=== PATIENT | male | born 1955 | race Caucasian/White ===

== ENCOUNTER 2019-06-10 09:13 | Outpatient (CLI) | payer OTHER, SELFPAY ==
--- NOTE | ~2019-06-10 | XR_ITS ---
XR chest 2V DATE: 06/10/2019 09:43 INDICATION: Cough, wheezing TECHNIQUE: PA and lateral views COMPARISON: 07/09/2011 two-view chest FINDINGS: Diffuse idiopathic skeletal hyperostosis of the thoracic spine. Normal heart size. No hilar or mediastinal enlargement. No pulmonary infiltrate or consolidation, ple ural effusion or pulmonary vascular congestion or pneumothorax. IMPRESSION: No active cardiopulmonary disease or significant change since 07/09/2011 Reviewed, dictated and finalized at location B. L MAKER IMPRESSION: No active cardiopulmonary disease or significant change since 012
== END 2019-06-10 09:14 | disposition home or self-care (01) ==
PROVIDERS: PCP Internal Medicine; Visit Provider Internal Medicine
DX: R05 Cough (principal); R06.2 Wheezing
CPT/HCPCS: 71046

== ENCOUNTER 2021-12-17 11:10 | Outpatient (CLI) | payer MEDICARE, OTHER, SELFPAY ==
--- NOTE | ~2021-12-17 | XR_ITS ---
EXAMINATION: XR chest 2V 12/17/2021 11:56 INDICATION: Preop clearance testing. PROCEDURE: 2 view chest COMPARISON: 06/10/2019 FINDINGS: The lungs are clear. The cardiomediastinal silhouette is within normal limits. There are no pleural effusions. There is no pneumothorax suspected. IMPRESSION: 1: NO ACUTE CARDIOPULMONARY DISEASE. Reviewed, dictated and finalized at location B.
[2021-12-17 11:30] LABS: Basophils Absolute Auto 0.03 K/mm3 (0.00-0.10); Basophils Percent Auto 0.4 % (0.0-1.0); Eosinophils Absolute Auto 0.08 K/mm3 (0.02-0.50); Eosinophils Percent Auto 1.1 % (1.0-6.0); Hematocrit 44.8 % (37.0-46.0); Hemoglobin 15.5 g/dL (12.4-15.3); Immature Granulocyte Absolute 0.05 K/mm3 (0.00-0.00); Immature Granulocyte Percent A 0.7 % (0.0-0.0); Lymphocytes Absolute Auto 1.99 K/mm3 (1.10-4.50); Lymphocytes Percent Auto 28.3 % (18.0-42.0); Mean Corpuscular HGB Conc 34.6 g/dL (32.0-36.0); Mean Corpuscular Hemoglobin 35.4 pg (27.0-31.0); Mean Corpuscular Volume 102.3 fL (78.0-102.0); Mean Platelet Volume 10.1 fl (8.7-11.0); Monocytes Absolute Auto 0.58 K/mm3 (0.10-0.90); Monocytes Percent Auto 8.3 % (2.0-11.0); Neutrophils Absolute Auto 4.3 K/mm3 (1.7-7.2); Neutrophils Percent Auto 61.2 % (50.0-70.0); Platelet Count Result 155 K/mm3 (150-420); Red Blood Count 4.38 M/mm3 (4.70-6.10); Red Cell Distribution Width 12.6 % (11.6-14.4)
--- NOTE | 2021-12-17 11:35 | ECG_ITS ---
Measurements Intervals [place] Rate: 58 P: 9 NH: 133 QRS: 33 QRSD: 106 T: 43 QT: 419 QTc: 413 Interpretive Statements SINUS BRADYCARDIA WITH OCCASIONAL SUPRAVENTRICULAR PREMATURE COMPLEXES OTHERWISE WITHIN NORMAL LIMITS NO PREVIOUS ECG AVAILABLE FOR COMPARISON Electronically Signed On 12-17-2021 14:14:09 CDT by iNr Mcarthur M.D.
[2021-12-17 11:45] LABS: Alanine Aminotransferase 30 U/L (16-63); Alkaline Phosphatase 63 U/L (46-116); Anion Gap 4 mmol/L (8-16); Aspartate Amino Transferase 17 U/L (15-37); Bilirubin,Total 1.3 mg/dL (0.00-1.00); Blood Urea Nitrogen 8 mg/dL (7-18); Calcium 8.7 mg/dL (8.5-10.1); Carbon Dioxide 32 mmol/L (21-32); Chloride 103 mmol/L (98-108); Estimated Glomerular Filt Rate > 60; Glucose 120 mg/dL (70-99); Osmolality Calculated 287 mOsm/kg (285-295); Potassium 4.1 mmol/L (3.5-5.1); Sodium 139 mmol/L (136-145); Total Protein 7.1 g/dL (6.4-8.2)
== END 2021-12-17 11:11 | disposition home or self-care (01) ==
LOC: CHSLAB 11:18
PROVIDERS: PCP Internal Medicine; Visit Provider Internal Medicine
DX: Z01.818 Encounter for other preprocedural examination (principal)
CPT/HCPCS: 36415; 71046; 80053; 85025; 93005

== ENCOUNTER 2022-01-14 11:59 | Outpatient (CLI) | payer MEDICARE, OTHER, SELFPAY ==
--- NOTE | ~2022-01-14 | XR_ITS ---
EXAMINATION: XR chest 2V Exam Date/Time: 01/14/2022 12:10 CDT HISTORY: testing positive for COVID x2wks, still has fever cough Comparison: Same day at :mm 12/17/2021. RESULT: Lines, tubes, and devices: None. Lungs and pleura: Clear. Cardiomediastinal silhouette: Stable. Other: No acute osseous or upper abdominal finding. IMPRESSION: No acute cardiopulmonary process. Reviewed, dictated and finalized at location K.
[2022-01-14 12:27] LABS: Basophils Absolute Auto 0.02 K/mm3 (0.00-0.10); Basophils Percent Auto 0.4 % (0.0-1.0); Eosinophils Percent Auto 1.8 % (1.0-6.0); Hematocrit 46.4 % (37.0-46.0); Hemoglobin 16.3 g/dL (12.4-15.3); Immature Granulocyte Absolute 0.05 K/mm3 (0.00-0.00); Immature Granulocyte Percent A 0.9 % (0.0-0.0); Lymphocytes Percent Auto 27.5 % (18.0-42.0); Mean Corpuscular HGB Conc 35.1 g/dL (32.0-36.0); Mean Corpuscular Hemoglobin 35.4 pg (27.0-31.0); Mean Corpuscular Volume 100.7 fL (78.0-102.0); Monocytes Absolute Auto 0.56 K/mm3 (0.10-0.90); Monocytes Percent Auto 10.3 % (2.0-11.0); Neutrophils Absolute Auto 3.2 K/mm3 (1.7-7.2); Neutrophils Percent Auto 59.1 % (50.0-70.0); Platelet Count Result 208 K/mm3 (150-420); Red Blood Count 4.61 M/mm3 (4.70-6.10); Red Cell Distribution Width 11.9 % (11.6-14.4); White Blood Count 5.5 K/mm3 (4.8-10.8)
[2022-01-14 12:44] LABS: Alanine Aminotransferase 24 U/L (16-63); Albumin Level 3.8 g/dL (3.4-5.0); Alkaline Phosphatase 66 U/L (46-116); Anion Gap 7 mmol/L (8-16); Aspartate Amino Transferase 13 U/L (15-37); Bilirubin,Total 0.8 mg/dL (0.00-1.00); Blood Urea Nitrogen 7 mg/dL (7-18); Calcium 8.6 mg/dL (8.5-10.1); Carbon Dioxide 28 mmol/L (21-32); Chloride 105 mmol/L (98-108); Estimated Glomerular Filt Rate > 60; Glucose 229 mg/dL (70-99); Osmolality Calculated 295 mOsm/kg (285-295); Potassium 3.7 mmol/L (3.5-5.1); Sodium 140 mmol/L (136-145); Total Protein 7.3 g/dL (6.4-8.2)
[2022-01-14 12:50] LABS: Influenza Control Valid (Valid); SARS-CoV-2 Ag Positive (Negative)
[2022-01-14 17:21] LABS: Hemoglobin A1C 6.1 % (<5.7)
== END 2022-01-14 12:00 | disposition home or self-care (01) ==
LOC: CHSLAB 12:02
PROVIDERS: PCP Internal Medicine; Visit Provider Nurse Practitioner Family
DX: U07.1 COVID-19 (principal); J06.9 Acute upper respiratory infection, unspecified; R05.9 Cough, unspecified; R73.9 Hyperglycemia, unspecified
CPT/HCPCS: 71046; 80053; 83036; 85025; 87426; 87804; C9803

== ENCOUNTER 2024-04-23 07:49 | Outpatient (CLI) | payer MEDICARE, SELFPAY ==
[2024-04-23 08:17] LABS: Hemoglobin 16.9 g/dL (12.4-15.3); Mean Corpuscular HGB Conc 35.2 g/dL (32-36); Mean Corpuscular Hemoglobin 34.7 pg (27.0-31.0); Mean Corpuscular Volume 98.6 fL (78.0-102.0); Mean Platelet Volume 10.1 fl (8.7-11.0); Platelet Count Result 170 K/mm3 (150-420); Red Blood Count 4.87 M/mm3 (4.70-6.10); Red Cell Distribution Width 12.5 % (11.6-14.4); White Blood Count 6.7 K/mm3 (4.8-10.8)
[2024-04-23 08:26] LABS: Hemoglobin A1C 6.6 % (<5.7)
[2024-04-23 08:49] LABS: Alanine Aminotransferase 36 U/L (16-63); Alkaline Phosphatase 70 U/L (46-116); Anion Gap 6 mmol/L (4-12); Aspartate Amino Transferase 18 U/L (15-37); Bilirubin,Total 1.8 mg/dL (0.00-1.00); Blood Urea Nitrogen 10 mg/dL (7-18); Calcium 9.1 mg/dL (8.5-10.1); Carbon Dioxide 32 mmol/L (21-32); Chloride 102 mmol/L (98-108); Cholesterol 127 mg/dL (0-200); Estimated Glomerular Filt Rate > 60; Glucose 135 mg/dL (70-99); HDL Direct 48 mg/dL (40-60); LDL Cholesterol Calculated 42 mg/dL (<130); Osmolality Calculated 291 mOsm/kg (285-295); Potassium 4.6 mmol/L (3.5-5.1); Sodium 140 mmol/L (136-145); Total Protein 7.1 g/dL (6.4-8.2); Triglycerides 184 mg/dL (0-150)
[2024-04-23 08:53] LABS: CRP < 0.5 mg/dL (0.0-0.9)
== END 2024-04-23 07:50 | disposition home or self-care (01) ==
PROVIDERS: PCP Internal Medicine; Visit Provider Internal Medicine
DX: E78.5 Hyperlipidemia, unspecified (principal); E11.9 Type 2 diabetes mellitus without complications
CPT/HCPCS: 36415; 80053; 80061; 83036; 84443; 85027; 86140

== ENCOUNTER 2024-08-12 09:50 | Outpatient (CLI) | payer MEDICARE, SELFPAY ==
--- NOTE | ~2024-08-12 | XR_ITS ---
Clinical Indication: Asthma PA and lateral views of the chest: Comparison: 01/14/2022 Findings: The lungs are clear, without evidence of focal consolidation or pleural effusion. Cardiome diastinal silhouette is within normal limits. Bones and soft tissues are unremarkable. Impression: Normal chest. Reviewed, dictated and finalized at location . Impression: Normal chest.
[2024-08-12 10:22] LABS: Basophils Absolute Auto 0.01 K/mm3 (0.00-0.10); Basophils Percent Auto 0.2 % (0.0-1.0); Eosinophils Absolute Auto 0.06 K/mm3 (0.02-0.50); Hematocrit 45.8 % (37.0-46.0); Hemoglobin 15.5 g/dL (12.4-15.3); Immature Granulocyte Absolute 0.04 K/mm3 (0.00-0.00); Immature Granulocyte Percent A 0.7 % (0.0-0.0); Lymphocytes Absolute Auto 1.14 K/mm3 (1.10-4.50); Lymphocytes Percent Auto 19.4 % (18.0-42.0); Mean Corpuscular HGB Conc 33.8 g/dL (32-36); Mean Corpuscular Hemoglobin 33.9 pg (27.0-31.0); Mean Corpuscular Volume 100.2 fL (78.0-102.0); Mean Platelet Volume 9.9 fl (8.7-11.0); Monocytes Absolute Auto 0.52 K/mm3 (0.10-0.90); Monocytes Percent Auto 8.8 % (2.0-11.0); Neutrophils Absolute Auto 4.12 K/mm3 (1.70-7.20); Neutrophils Percent Auto 69.9 % (50.0-70.0); Platelet Count Result 138 K/mm3 (150-420); Red Blood Count 4.57 M/mm3 (4.70-6.10); Red Cell Distribution Width 12.2 % (11.6-14.4); White Blood Count 5.9 K/mm3 (4.8-10.8)
--- OUTSIDE RECORDS SUMMARY | 2024-08-12 10:28 | XMS_ITS | Clinical Summary ---
Author Organization [facility] Address [address] [place] [address] Care Team Providers Care Physical Therapy Asst Name Role Phone Ricardo Castanon MD Primary Care Provider Allergies No known active allergies Medications atorvastatin (LIPITOR) 10 MG tablet Take 1 tablet (10 mg total) by mouth daily. 4 Active methotrexate (TREXALL) 2.5 MG tablet Take 8 tablets (20 mg total) by mouth once a week. 4 Active traMADol (ULTRAM) 50 MG tablet Take 1 tablet (50 mg total) by mouth 2 (two) times daily as needed. 4 Active Multiple Vitamin (ONE-A-DAY MENS) Tab Take 1 tablet by mouth daily. Active Vitamin D3 (VITAMIN D) 50 mcg tablet Take 1 tablet (50 mcg total) by mouth daily. Active vitamin E 100 UNIT capsule Take 1 capsule (100 Units total) by mouth daily. Active fluocinonide (LIDEX) 0.05 % external solution APPLY TO SCALP ONCE DAILY UNTIL NO LONGER FLAKY. 3 Active methylPREDNISol one, SERGIO, (MEDROL DOSEPAK) 4 MG tabletIndicatio ns:Strain of long flexor muscle, fascia and tendon of left thumb at wrist and hand level, subsequent encounter 4 mg Oral Tablet Therapy Pack. Follow package directions 1 each 4 Active Active Problems Problem Noted Date Diagnosed Date Strain of long flexor muscle , fascia and tendon of left thumb at wrist and hand level, subsequent encounter 04/15/2024 Trigger thumb of left hand 02/03/2024 Family History Medical History Relation Comments No Known Problems Father No Known Problems Mother Relation Status Comments Father Mother Social History Tobacco Use Types Packs/Day Years Used Date Smoking Tobacco: Never Smokeless Tobacco: Never Tobacco Cessation:Counseling Given: Not Answered Alcohol Use Standard Drinks/Week Comments Yes 0 (1 standard drink = 0.6 oz pur e alcohol) Sex and Gender Information Value Date Recorded Sex Assigned at Not on file Legal Sex Male 7:11 AM CDT Gender Identity Not on file Sexual Orientation Not on file Last Filed Vital Signs Vital Sign Reading Time Taken Comments Blood Pressure - - Pulse - - Temperature - - Respiratory Rate - - Oxygen Saturation - - Inhaled Oxygen Concentration - - Weight 95.3 kg (210 lb) 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 Height 175.3 cm (5' 9 ) 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 Body Mass Index 31.01 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 Plan of Treatment Health Maintenance Due Date Last Done Comments Colorectal Cancer Screening Colonoscopy (10 Years) 1955 Hepatitis C 1972 Annual Medicare Wellness Visit 11/11/2019 COVID-19 Vaccine ( season) 2024 01/28/2024, 01/28/2023, 03/05/2022, Additional history exists DTaP, Tdap and Td Vaccines (3 - Td or Tdap) 02/19/2032 02/18/2022, 09/24/2011 Zoster Vaccines Completed 04/14/2018, 12/25/2017 Pneumococcal Vaccine: 65+ Years Completed 04/21/2023, 12/23/2021, 03/18/2017, Additional history exists RSV Immunization or 60+ Years Completed 05/01/2023 Meningococcal B Vaccine Aged Out No l onger eligible based on patient's age to complete this topic Meningococcal Vaccine Aged Out No caitlin deann eligible based on patient's age to complete this topic RSV Immunizations Under 20 Months Aged Out No longer eligible based on patient's age to complete this topic Insurance MEDICARE [employer] Care Teams Physical Therapy Asst Relationship Specialty Start Date End Date Ricardo Castanon MD [address] [place] [address] PCP - General INTERNAL MEDICINE 02/03/24
--- OUTSIDE RECORDS SUMMARY | 2024-08-12 10:28 | XMS_ITS | Data Portability ---
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 Peck on 11/19/2021. - Right anterior deltoid, Superficial BCC, s/p ED&C by Dr. Peck on 11/19/2021. - Right posterior deltoid, Superficial BCC, superficial BCC, s/p excision by Plastic surgery om 12/20/[address] Argueta -Right upper back, Superficial BCC, superficial BCC, s/p excision by Plastic surgery om 12/20/[address] Argueta - Left posterior shoulder, Nodular BCC, s/p excision by Plastic surgery om 12/20/[address] Argueta - Midline upper back, Nodular BCC superficial BCC, s/p excision by Plastic surgery om 12/20/[address] Argueta -Left upper back, Nodular BCC, s/p excision by Plastic surgery on 12/20/2021.By Dr. Argueta - Left upper back superior edge of scar, Superficial BCC, s/p excision by Plastic surgery on 12/20/2021. By Dr. Argueta - Left Shoulder, nodular BCC, s/p ED&C by Dr. Peck on 01/18/2022. - Right Forearm, superficial BCC, s/p ED&C by Dr. Peck on 01/18/2022. - Left cheek, Nodular BCC, s/p Mohs by Dr. Sequeira on 03/26/2022. -Central chest , superficial and early nodular BCC, s/p ED&C by Dr. Peck on 04/23/2022. -s/p field treatment on scalp in 05/2022. - Significantly improved -Right lateral chest, superficial BCC, s/p ED&C on 04/15/2023 #Neoplasm of uncertain behavior of skin (D48.5) A. LOCATION: left upper back superior edge of scar, lateral edge - size, description: shiny pink papule, 0.7 x 0.8 cm -DDx: recurrent BCC SHAVE BIOPSY Description: Risks, benefits, and alternatives of procedure were discussed, and patient understands and agrees with treatment plan. Risks reviewed including bleeding, pain, infection, recurrence, pigmentary change, and scarring. The site was cleansed with an alcohol swab and anesthetized with Lidocaine 1% in epinephrine 1:100,000 with 0.1 parts 8.4% sodium bicarbonate. A flexible blade was used to biopsy the lesion. Specimen was submitted in labeled formalin-filled specimen jar for standard histopathologic diagnosis. Hemostasis was obtained with pressure and aluminum chloride/electrodesi ccation. There were no complications; minimal bleeding, less than 1 mL. Patient tolerated procedure well. White petrolatum and a pressure bandage applied. Post-biopsy care instructions were discussed. Results to be discussed with patient once available. Photo documentation was obtained with consent. Most likely we will do ED&C per patient preference. B. LOCATION: left lateral mid back - size, description: medium brown papule with very dark area at 3 o'clock, 0.4 x 0.4 cm Indication: To remove entire lesion due to suspicion for malignancy -DDx: Nevus with SK, less likely MIS SHAVE REMOVAL: Description: Risks, benefits, and alternatives of procedure were discussed, and patient understands and agrees with treatment plan. Risks reviewed including bleeding, pain, infection, recurrence, pigmentary change, and scarring. The site was cleansed with an alcohol swab and anesthetized with Lidocaine 1% in epinephrine 1:100,000 with 0.1 parts 8.4% sodium bicarbonate. A flexible blade was used to remove the lesion. Specimen was submitted in labeled formalin-filled specimen jar for standard histopathologic diagnosis. Hemostasis was obtained with pressure and aluminum chloride/electrodesi ccation. There were no complications; minimal bleeding, less than 1 mL. Patient tolerated procedure well. White petrolatum and a bandage applied. Post-biopsy care instructions were discussed.postoperat brennan photo documentation was obtained with consent. #Actinic Keratosis LOCATION: right antihelix (2), right neck (3), right cheek (2), right forehead (1), right suprabrow (1), left forehead (2), left congregation (2), left suprabrow (1), left cheek (5), left triangular fossa (1), left jaw line (3), right forearm (1) Total = 24 description: erythematous gritty papules with scale -Discussed diagnosis and pre-cancerous nature of these lesions. Given potential to progress into an SCC, recommend treatment. -Cryotherapy performed today. Verbal consent was obtained after discussing risks including irritation, blistering, persistent dyspigmentation and potential need for multiple treatments. AKs were treated with liquid nitrogen x 12-15 sec x 2. Patient tolerated this well; there were no complications. Post liquid nitrogen care instructions and expectations were provided and discussed. The patient s condition required a significant, separately identifiable E/M service above and beyond the other services/procedures provided by the same physician on the same day of the procedure or other service. The following diagnoses are categorized as CHRONIC ILLNESS WITH EXACERBATION, PROGRESSION OR SIDE EFFECTS #Seborrheic dermatitis LOCATION: Scalp (well controlled) oily thin scaly ill-defined plaques Discussed diagnosis and treatment. PRESCRIPTION: CONT ketoconazole 2% shampoo daily- leave in for 5 minutes before washing out. CONT fluocinonide 0.05% solution at night to scalp. Do not apply to face,axilla,groin due to risk of skin thinning unless deemed appropriate per MD. May use 1-2 week/month as needed when scalp gets redder and scaly. The risks of assisted use of topical steroids including thinning of the skin, striae formation, and hypopigmentation were discussed. I stressed that this medication should only be used as directed. Prescription drug management was performed including discussion with the patient and/or family member that may include dose, expectations of treatment including potential side effects, review of patient response and, when necessary or clinically appropriate, change in medication or dosage. The following diagnoses are categorized as chronic stable, that is, the problem is expected to last at least a year and is currently at treatment goal. #Clinically benign nevi LOCATION: back, right lower leg ,chest, interdigital space between the left 3- 4th toes (evenly pigmented/monitor), multiple well-demarcated evenly pigmented brown macules and thin papules - discussed nature of condition - We discussed the importance of sun protection precautions, including the use of broad spectrum sunscreen (SPF 30 or higher) such as Zinc oxide or titanium dioxide, lip balm with SPF, UPF clothing, wide brim hats, and avoiding sunlight during peak hours. I encouraged self-skin examination and patient understands to monitor for changes in the ABCDEs - symmetry, border, color, diameter or evolution including itching or bleeding. #We discussed the fact that the following (see below) are benign lesions requiring no treatment. We discussed the fact that removal would be considered a cosmetic procedure and would not be covered by insurance. The patient is not bothered by the lesions and does not wish to have them treated. The patient was advised that more such lesions may develop. We will observe. #Milia/solar comedones LOCATION: left nasal labial fold Small, yellow/white papules - benign nature of diagnosis discussed with patient as well as elective nature of treatment #Seborrheic keratosis LOCATION: back, left congregation (pigmented), left preauricular -Multiple brown brown stuck on papules with some scaling. ------ Chronic immunosuppression: Patient is taking Methotrexate. Will continue to closely monitor, recommend at least annual skin checks or sooner for any new or changing lesions. Discussed increased risk of skin cancer. Photoprotection advised including broad spectrum spf at least 30 such as Zinc oxide or titanium dioxide, hats, long sleeves. Skin cancer hand out provided and reviewed. #Scar, Hx of NMSC and encounter for follow up surveillance of skin cancer - see assessments section for all location(s) - no evidence of recurrence on full skin exam - counseled patient extensively re: importance of daily sunscreen as well as use of sun protective clothing and hats - return to clinic for full skin exam in 6 months --- Patient voiced understanding of education/counseling provided. -Follow up in 6 months - skin cancer hx left upper back superior edge of scar, lateral edge: recurrent nodular BCC; I recommend ED&C. left lateral midback: SK+nevus. daya Not available 11/14/2023 21:14:29 11/18/2023 11/18/2023 SIGNIFICANT DERMATOLOGIC HISTORY: - Left norwood, Superficial BCC, s/p ED&C by Dr. Peck on 11/19/2021. - Right anterior deltoid, Superficial BCC, s/p ED&C by Dr. Peck on 11/19/2021. - Right posterior deltoid, Superficial BCC, superficial BCC, s/p excision by Plastic surgery om 12/20/[address] Argueta -Right upper back, Superficial BCC, superficial BCC, s/p excision by Plastic surgery om 12/20/[address] Argueta - Left posterior shoulder, Nodular BCC, s/p excision by Plastic surgery om 12/20/[address] Argueta - Midline upper back, Nodular BCC superficial BCC, s/p excision by Plastic surgery om 12/20/[address] Argueta -Left upper back, Nodular BCC, s/p excision by Plastic surgery on 12/20/2021.By Dr. Argueta - Left upper back superior edge of scar, Superficial BCC, s/p excision by Plastic surgery on 12/20/2021. By Dr. Argueta - Left Shoulder, nodular BCC, s/p ED&C by Dr. Peck on 01/18/2022. - Right Forearm, superficial BCC, s/p ED&C by Dr. Peck on 01/18/2022. - Left cheek, Nodular BCC, s/p Mohs by Dr. Sequeira on 03/26/2022. -Central chest , superficial and early nodular BCC, s/p ED&C by Dr. Peck on 04/23/2022. -s/p field treatment on scalp in 05/2022. - Significantly improved -Right lateral chest, superficial BCC, s/p ED&C on 04/15/2023 -Right congregation, nodular BCC, s/p Mohs by Dr. Sequeira on 07/30/2023 - left upper back superior edge of scar, lateral edge, recurrent nodular BCC, s/p ED&C on 11/18/2023 PROCEDURE: Electrodesiccation and curettage (ED&C) Location: left upper back superior edge of scar, lateral edge Pre-op diagnosis: nodular BCC Post-op diagnosis: same Post-op size: 1.7 x 1.4 cm Indication: To treat residual carcinoma and prevent recurrence Prior to the procedure, I discussed the diagnoses, treatment options, potential complications and risks versus benefits. Risks include bleeding, infection, scar, recurrence, hyper/hypopigmentati on, nerve damage, numbness, reaction to anesthesia or other products used in the surgical setting, skin texture change, and soft tissue contour change. Name, site, date of , and procedures were confirmed. After written informed consent was obtained, the site was cleaned with alcohol and local anesthetic Lidocaine 1% in epinephrine 1:100,000 with 0.1 parts 8.4% sodium bicarbonate was infiltrated. The site was curetted to the depth of the deep dermis and cauterized with electrodesiccation. This was repeated for a total of 3 cycles. Hemostasis was maintained with electrodesiccation and pressure. White petrolatum and pressure dressings were placed. Wound care instructions were provided and discussed. Patient tolerated today's procedures well; there were no complications. Postsurgical care instructions were provided and discussed. I encouraged patient to call or return to this clinic sooner with any questions or concerns. Patient was discharged in good condition. Total Amount of lidocaine used: 1.0 mL lido with epi. Patient voiced understanding of education/counseling provided. -Follow up as scheduled on 04/23/2024 for tbse- skin cancer hx [email or web address] Not available 11/23/2023 16:30:26 04/16/2024 04/16/2024 SIGNIFICANT DERMATOLOGIC HISTORY: - Left norwood, Superficial BCC, s/p ED&C by Dr. Peck on 11/19/2021. - Right anterior deltoid, Superficial BCC, s/p ED&C by Dr. Peck on 11/19/2021. - Right posterior deltoid, Superficial BCC, superficial BCC, s/p excision by Plastic surgery om 12/20/[address] Argueta -Right upper back, Superficial BCC, superficial BCC, s/p excision by Plastic surgery om 12/20/[address] Argueta - Left posterior shoulder, Nodular BCC, s/p excision by Plastic surgery om 12/20/[address] Argueta - Midline upper back, Nodular BCC superficial BCC, s/p excision by Plastic surgery om 12/20/[address] Argueta -Left upper back, Nodular BCC, s/p excision by Plastic surgery on 12/20/2021.By Dr. Argueta - Left upper back superior edge of scar, Superficial BCC, s/p excision by Plastic surgery on 12/20/2021. By Dr. Argueta - Left Shoulder, nodular BCC, s/p ED&C by Dr. Peck on 01/18/2022. - Right Forearm, superficial BCC, s/p ED&C by Dr. Peck on 01/18/2022. - Left cheek, Nodular BCC, s/p Mohs by Dr. Sequeira on 03/26/2022. -Central chest , superficial and early nodular BCC, s/p ED&C by Dr. Peck on 04/23/2022. -s/p field treatment on scalp in 05/2022. - Significantly improved -Right lateral chest, superficial BCC, s/p ED&C on 04/15/2023 -Right congregation, nodular BCC, s/p Mohs by Dr. Sequeira on 07/30/2023 - left upper back superior edge of scar, lateral edge, recurrent nodular BCC, s/p ED&C on 11/18/2023 -central chest superior, nodular BCC s/p ED&C 04/16/2024 #Neoplasm of uncertain behavior of skin (D48.5) A. LOCATION: central chest superior - size, description: 0.8 x 0.5cm shiny pink papule -DDx: BCC SHAVE BIOPSY Description: Risks, benefits, and alternatives of procedure were discussed, and patient understands and agrees with treatment plan. Risks reviewed including bleeding, pain, infection, recurrence, pigmentary change, and scarring. The site was cleansed with an alcohol swab and anesthetized with Lidocaine 1% in epinephrine 1:100,000 with 0.1 parts 8.4% sodium bicarbonate. A flexible blade was used to biopsy the lesion. Specimen was submitted in labeled formalin-filled specimen jar for standard histopathologic diagnosis. Hemostasis was obtained with pressure and aluminum chloride/electrodesi ccation. There were no complications; minimal bleeding, less than 1 mL. Patient tolerated procedure well. White petrolatum and a pressure bandage applied. Post-biopsy care instructions were discussed. Results to be discussed with patient once available. Photo documentation was obtained with consent. PROCEDURE: Electrodesiccation and curettage (ED&C) Location: central chest superior Pre-op diagnosis: BCC Post-op diagnosis: same Pre-op size: 0.8 x 0.5 cm Post-op size: 1.1 x 1.1 cm Indication: To treat residual carcinoma and prevent recurrence Prior to the procedure, I discussed the diagnoses, treatment options, potential complications and risks versus benefits. Risks include bleeding, infection, scar, recurrence, hyper/hypopigmentati on, nerve damage, numbness, reaction to anesthesia or other products used in the surgical setting, skin texture change, and soft tissue contour change. Name, site, date of , and procedures were confirmed. After written informed consent was obtained, the site was cleaned with alcohol and local anesthetic Lidocaine 1% in epinephrine 1:100,000 with 0.1 parts 8.4% sodium bicarbonate was infiltrated. The site was curetted to the depth of the deep dermis and cauterized with electrodesiccation. This was repeated for a total of 3 cycles. Hemostasis was maintained with electrodesiccation and pressure. White petrolatum and pressure dressings were placed. Wound care instructions were provided and discussed. Patient tolerated today's procedures well; there were no complications. Postsurgical care instructions were provided and discussed. I encouraged patient to call or return to this clinic sooner with any questions or concerns. Patient was discharged in good condition. Total Amount of lidocaine used: 2.5mL Patient confirms that the site(s) to be treated is/ are the correct site(s). #Actinic Keratosis LOCATION: scalp (4), right shoulder (1), right forearm (1) Total = 6 description: erythematous gritty papules with scale -Discussed diagnosis and pre-cancerous nature of these lesions. Given potential to progress into an SCC, recommend treatment. -Cryotherapy performed today. Verbal consent was obtained after discussing risks including irritation, blistering, persistent dyspigmentation and potential need for multiple treatments. AKs were treated with liquid nitrogen x 12-15 sec x 2. Patient tolerated this well; there were no complications. Post liquid nitrogen care instructions and expectations were provided and discussed. -Patient will plan to complete field treatment on forehead and sides of face. -FLUOROURACIL 5%/CALCIPOTRIENE 0.005%/ 1:1 CREAM - Apply twice daily to forehead and sides of face for 7 days. The patient s condition required a significant, separately identifiable E/M service above and beyond the other services/procedures provided by the same physician on the same day of the procedure or other service. The following diagnoses are categorized as CHRONIC ILLNESS WITH EXACERBATION, PROGRESSION OR SIDE EFFECTS #Seborrheic dermatitis LOCATION: Scalp (well controlled) oily thin scaly ill-defined plaques Discussed diagnosis and treatment. PRESCRIPTION: CONT ketoconazole 2% shampoo daily- leave in for 5 minutes before washing out. CONT fluocinonide 0.05% solution at night to scalp. Do not apply to face,axilla,groin due to risk of skin thinning unless deemed appropriate per MD. May use 1-2 week/month as needed when scalp gets redder and scaly. The risks of intermediate manager use of topical steroids including thinning of the skin, striae formation, and hypopigmentation were discussed. I stressed that this medication should only be used as directed. Prescription drug management was performed including discussion with the patient and/or family member that may include dose, expectations of treatment including potential side effects, review of patient response and, when necessary or clinically appropriate, change in medication or dosage. The following diagnoses are categorized as chronic stable, that is, the problem is expected to last at least a year and is currently at treatment goal. #Clinically benign nevi LOCATION: back, right lower leg ,chest, interdigital space between the left 3- 4th toes (evenly pigmented/monitor), multiple well-demarcated evenly pigmented brown macules and thin papules - discussed nature of condition - We discussed the importance of sun protection precautions, including the use of broad spectrum sunscreen (SPF 30 or higher) such as Zinc oxide or titanium dioxide, lip balm with SPF, UPF clothing, wide brim hats, and avoiding sunlight during peak hours. I encouraged self-skin examination and patient understands to monitor for changes in the ABCDEs - symmetry, border, color, diameter or evolution including itching or bleeding. #We discussed the fact that the following (see below) are benign lesions requiring no treatment. We discussed the fact that removal would be considered a cosmetic procedure and would not be covered by insurance. The patient is not bothered by the lesions and does not wish to have them treated. The patient was advised that more such lesions may develop. We will observe. #Milia/solar comedones LOCATION: left nasal labial fold Small, yellow/white papules - benign nature of diagnosis discussed with patient as well as elective nature of treatment #Seborrheic keratosis LOCATION: back, left congregation (pigmented), left preauricular -Multiple brown brown stuck on papules with some scaling. ------ Chronic immunosuppression: Patient is taking Methotrexate. Will continue to closely monitor, recommend at least annual skin checks or sooner for any new or changing lesions. Discussed increased risk of skin cancer. Photoprotection advised including broad spectrum spf at least 30 such as Zinc oxide or titanium dioxide, hats, long sleeves. Skin cancer hand out provided and reviewed. #Scar, Hx of NMSC and encounter for follow up surveillance of skin cancer - see assessments section for all location(s) - no evidence of recurrence on full skin exam - counseled patient extensively re: importance of daily sunscreen as well as use of sun protective clothing and hats - return to clinic for full skin exam in 6 months --- Patient voiced understanding of education/counseling provided. -Follow up in 6 months - skin cancer hx hany Not available 04/21/2024 14:58:41 Plan of Treatment Reminders Order Date Submit Date Provider Last Modified By Organization Details Last Modified Time Details Appointments Establish ed Patient 10.EST 2024 09:20A M Dr. Marco Peck Not available Not available Not available Lab surgical pathology study - A. LOCATION: central chest superior- size, descripti on: 0.8 x 0.5cm shiny pink papule-DD x: BCC 2023 ANTHONY [facility], [address] [place] [address], [id number], 04/20/2024 16:20:32 surgical pathology study - A. LOCATION: left upper back superior edge of scar, lateral edge- size, descripti on: shiny pink papule, 0.7 x 0.8 cm -DDx: recurrent BCCB. LOCATION: left lateral mid back- size, descripti on: medium brown papule with very dark area at 3 o'clock, 0.4 x 0.4 cm Indicatio n: To remove entire lesion due to suspicion for malignanc y-DDx: Nevus with SK, less likely MIS 2023 daya [facility] Only [facility], [address] [place] [address], [id number], 11/18/2023 23:30:46 Referral None recorded. Procedures None recorded. Surgeries None recorded. Imaging None recorded. Medication Orders compounde d medicatio n 2023 [facility], [address] [place] [address], [place], [address], 04/16/2024 15:46:42 fluocinon lazara 0.05 % topical solution 2023 024 [facility] #[id number], [address] [place], [address], 04/16/2024 16:57:12 ketoconaz ole 2 % shampoo 2023 024 daya [id number], [address] [place], [address], 04/16/2024 16:57:12 Patient TargetsNo targets recorded. Patient InstructionsNo instructions recorded. Reason for Referral None Reported. Results Created Date Observation Date Name Description Value Unit Range Abnormal Flag Note LastModifiedBy Organization Detail LastModifiedTime 11/11/19 24 11/12/2023 surgi anni patho logy study tissue exam [facility] [address],[place] [address] Ph. [phone] Jeremy Suarez MD, PhD, Medic al [facility], MARCO Garcia MD [facility] nt: CLAUDETTE BANSAL ID: [id number] Repor t Statu s: Final :0 1955 Case #: [id number] Age: 68 Y Gende r: M Date Colle cted: 11/10 MRN # : [id number] Date Recei nan: 11/10 Repor ricardo Date: 11/11 FINAL DIAGN OSIS: A. Skin, left upper back super ior edge of scar, later al edge, shave biops y : - Basal cell carci noma, nodul ar type ICD-1 0: C44.5 19 B. 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 Skin, left upper back super ior edge of scar, later al edge, shave biops y B. Skin, left later al mid back, shave biops y GROSS DESCR IPTIO N: The speci men conta iner( s) and requi sitio n have the same patie nt name. A. Recei nan in 10% neutr al buffe red forma say for forma say-f ixed paraf fin-e mbedd ed secti ons label ed A, left upper back is an unori ented 1.0 x 0.8 cm fragm ent of white -brown skin excis ed to a depth of 0.1 cm. A 0.9 x 0.5 cm flat yello w-brown lesio n is prese nt on the skin surfa ce and is adjac ent to the [facility]oses n. The speci men is inked , seria lly secti oned, and entir rose submi tted for histo logic study in one casse tte. B. Recei nan in 10% neutr al buffe red forma say for forma say-f ixed paraf fin-e mbedd ed secti ons label ed B, left later al mid back is an unori ented 1.0 x 0.6 cm fragm ent of yello w-brown skin excis ed to a depth of 0.1 cm. A 0.4 x 0.3 cm flat brown -brown lesio n is prese nt on the skin surfa ce and is 0.1 cm [address] the close [facility]. The speci men is inked , seria lly secti oned, and entir rose submi tted for histo logic study in one casse tte. CLINI ANNI INFOR MATIO N: CLINI ANNI INFOR MATIO N: A: Skin biops y, left upper back super ior edge of scar, later al edge, shiny pink papul e 0.7 x 0.8 cm, recur rent BCC. B: Skin biops y, left later al mid back, mediu m brown papul e with very dark area at 3 o'libby ck 0.4 x 0.4 cm, nevus with SK, less likel y MIS. Not Available Nm Only - Nm Laboratory [address] [place] [address], [place], [address], 11/12/2023 18:19:15 04/16/20 24 04/20/2024 surgi anni patho logy study tissue exam biopsy [facility] [address],[place] [address] Ph. [phone] Jeremy Suarez MD, PhD, [facility] al [facility], MARCO Garcia MD Patie nt: TREVAJaja CLAUDETTE Ryan Son Sampl e ID: [id number] Repor t Statu s: Final :0 1955 Case #: [id number] Age: 68 Y Gende r: M Date Colle cted: 04/16 MRN # : [id number] Date Recei nan: 04/16 Repor ricardo Date: 04/20 FINAL DIAGN OSIS: Skin, centr al chest super ior, shave biops y: - Basal cell carci noma, nodul ar type ICD-1 0: C44.5 19 Elect honorio will Verif ied by Albert Austin MD Elect honorio Signzachariah ture 04/20 15:15 SPECI MEN SOURC E: Skin, centr al chest super ior, shave biops y GROSS DESCR IPTIO N: The speci men conta iner( s) and requi sitio n have the same patie nt name. Recei nan in 10% neutr al buffe red forma say for forma say-f ixed paraf fin-e mbedd ed secti ons label ed A, centr al chest super ior is an unori ented 1.0 x 0.7 cm fragm ent of white -brown skin excis ed to a depth of 0.1 cm. A 0.3 x 0.2 x 0.1 cm arredondo- brown lesio n is prese nt on the skin surfa ce and is 0.1 [address] the close [facility]. The speci men is inked , seria lly secti oned, and entir rose submi tted for histo logic study in one casse tte. CLINI ANNI INFOR MATIO N: Skin biops y, centr al chest super ior, 0.8 X 0.5 cm shiny pink papul e. DDx: BCC. Not Available Sc Only - Sc Laboratory [facility] [address], [place], [address], 04/20/2024 16:20:32 Result Notes None recorded. Problems Name Problem SNOMED Code Status Onset Date Resolution Date Notes Provider Name and Address Organization Details Recorded Time Basal cell carcinoma of chest wall 459621303 Active 2023 [facility] 4 12:55:42 Solar degeneration 09925097 Active 2023 Marco Peck MD [address] [place] [address], [phone] [place] [address] 4 14:59:21 Neoplasm of uncertain behavior of skin 36046485 Active 2023 Gris Hewitt [facility] 4 13:22:00 Actinic keratosis 084218948 Active 2023 [facility] 4 12:27:54 Seborrheic dermatitis 38344575 Active 2023 Delores Guard [facility] 4 10:53:55 Immunosuppress ion 28456621 Active 2023 Delores Guard [facility] 4 10:54:16 Melanocytic nevus of trunk 362331554 Active 2023 Delores Guard [facility] 4 10:54:33 Seborrheic keratosis 579119145 Active 2023 Delores Guard [facility] 4 10:54:38 Milia 172509524 Active 2023 [facility] 4 10:54:42 Basal cell carcinoma of upper back 209538435 Active 2023 Laotto Guard [facility] 4 09:37:44 Problem Notes None recorded. Procedures Surgical History Date Name Laterality Status Provider Name and Address Organization Details Recorded Time 11/11/19 24 Shave Biopsy, Multiple completed [facility] 11/11/2023 11:00:45 11/11/19 24 Actinic Keratosis completed [facility] 11/11/2023 10:54:56 Colonoscopy with biopsy completed Not Available Health Note 11/04/2023 12:10:15 Imaging Results None recorded. Procedure Notes None recorded. Medical Equipment None Reported. Allergies No known drug allergies Medications Name Sig Start Date Stop Date Status Note LastModified by Organization Details LastModified Time compounded medication Apply twice daily to forehead and sides of face for 7 days. 2023 active Not Available Not Available Not Avai lable ketoconazole 2 % shampoo Lather to scalp, leave on for 5 mins, then rinse off. Use daily until clear. 2023 active Not Available Not Available Not Avai lable atorvastatin 10 mg tablet TAKE 1 TABLET BY MOUTH EVERY DAY active Not Available Not Available No t Available tramadol 50 mg tablet TAKE 1 TABLET BY MOUTH TWICE A DAY NEEDED active Not Available Not Available No t Available methotrexate sodium 2.5 mg tablet TAKE 8 TABLETS BY MOUTH WEEKLY active Not Available Not Available No t Available doxycycline monohydrate 100 mg capsule TAKE 1 CAPSULE BY MOUTH TWICE A DAY active Not Available Not Available No t Available cephalexin 500 mg capsule TAKE 1 CAPSULE BY MOUTH EVERY 12 HOURS FOR 10 DAYS active Not Available Not Available No t Available fluocinonide 0.05 % topical solution Apply to scalp once nightly 2023 active Not Available Not Available Not Avai lable neomycin-polym yxin-hydrocort 3.5 mg-10,000 unit/mL-1 % ear drops,susp INSTILL 4 DROPS INTO AFFECTED EAR(S) 3 TIMES A DAY FOR 7 DAYS active Not Available Not Available No t Available Vitals Date Recorded Body weight Heart rate Oxygen saturation Oxygen saturation in Arterial blood by Pulse oximetry Provider Name and Address Organization Details Last Updated DateTime 11/11/2023 76409.8 g 71 /min 95 % 95 % Zaida Nova [facility] 11/11/2023 10:27:09 Date Recorded Body weight Heart rate Oxygen saturation Oxygen saturation in Arterial blood by Pulse oximetry Provider Name and Address Organization Details Last Updated DateTime 11/18/2023 79562.77 g 67 /min 96 % 96 % Joanie Taylor [facility] 11/18/2023 09:20:02 Date Recorded Body weight Oxygen saturation Oxygen saturation in Arterial blood by Pulse oximetry Heart rate Provider Name and Address Organization Details Last Updated DateTime 04/16/2024 06930.42 g 95 % 95 % 75 /min Camila Mohr [facility] 04/16/2024 11:50:35 Social History Question Answer Notes LastModified by [employer] Details LastModified Time Do You Have An Advance Directive? No [email or web address] Information not available 11/04/2023 What Is Your Level Of Alcohol Consumption? Occasional [email or web address] Information not available 11/04/2023 How Many Times Per Week Do You Consume Alcohol? 3-4 Times Per Week [email or web address] Information not available 11/04/2023 What Is Your Level Of Caffeine Consumption? Occasional [email or web address] Information not available 11/04/2023 Are You Currently Employed? 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 3-4 Times Per Week [email or web address] Information not available 11/04/2023 When Did You Quit Smoking? 20 Years Ago [email or web address] Information not available 11/04/2023 Do You Have A Medical Power Of Acute Care Registered Nurse? No [email or web address] Information not available 11/04/2023 What Was The Date Of Your Most Recent Tobacco Screening? 11/11/2023 [email or web address] Information not available 11/04/2023 What Is Your Relationship Status? [email or web address] Information not available 11/04/2023 Do You Use Any Illicit Or Recreational Drugs? No [email or web address] Information not available 11/04/2023 Sex: Unknown Functional Status Question Answer Note LastModified by [employer] Details LastModified Time What is your exercise level? Occasional [email or web address] Information not available 11/04/2023 Mental Status None recorded. Family History Relationship Description Onset Age of this Age Resolved Age Notes LastModified by Organization Details LastModified Time Mother Arthritis [email or web address] Not available 11/04/2023 12:10:14 Father Family history of malignant neoplasm [email or web address] Not available 2023 12:10:14 Medical History Condition Response Attention-deficit Hyperactivity Disorder N High Blood Pressure N Thyroid Problems N COPD N Depression N Anemia N Diabetes N Anxiety Disorder N Bleeding Disorder N Arthritis Y Hyperlipidemia N Cancer N Stroke N Asthma N Seizures N Heart Disease N Fibromyalgia N Osteoporosis N Kidney Disease N Past Encounters Encounter ID Performer Location Encounter Start Date Encounter Closed Date Diagnosis/Indication Diagnosis SNOMED-CT Code Diagnosis ICD10 Code Diagnosis Note [id number] MD [facility] [address] [facility] [address] [facility] [place] [address] 11/11/2023 09:59:36 11/11/2023 11:22:01 Neoplasm of uncertain behavior of skin 25791165 D48.5 Actinic keratosis 089886 007 L57.0 Evaluation procedure 386 572430 Z08 History of malignant neoplasm of skin 142361460 Z85.828 Seborrheic dermatitis 50 119962 L21.9 Immunosuppression 200709 05 D84.9 Melanocyti c nevus of trunk 019373054 D22.5 Seborrheic keratosis 394 216660 L82.1 Milia 169346041 L72.0 [id number] MD [facility] [address] [facility] [place] [address] 11/18/2023 09:13:05 11/18/2023 10:57:12 Basal cell carcinoma of upper back 200676854 C44.519 left upper back superior edge of scar, lateral edge [id number] MD [facility] [place] [address] [facility] [place] [address] 04/16/2024 11:09:59 04/16/2024 12:52:38 Actinic keratosis 008648129 L57.0 Seborrheic dermatitis 50 185657 L21.9 Evaluation procedure 386 543629 Z08 History of malignant neoplasm of skin 051433572 Z85.828 Immunosuppression 161765 05 D84.9 Melanocyti c nevus of trunk 381275732 D22.5 Seborrheic keratosis 394 585175 L82.1 Milia 367757227 L72.0 Basal cell carcinoma of chest wall 847473107 C44.519 Neoplasm o f uncertain behavior of skin 41617496 D48.5 Solar degeneration 99163 006 L57.8 Health Concerns Section Related Observation LastModified by Organization Detai ls LastModified Time None Recorded Concern Status LastModified by Organization Details LastModified Time None Recorded Advance Directives Directive N: Payers Encounter Date Sequence Insurance Name Policy Number Policy [place] Covered Member ID May[place] Member ID Guarantor Name 11/11/2023 1 [place] Jose Luis Urbina Jr [id number] Jose Luis Carlitos 11/11/2023 2 [employer] (MEDICARE SUPPLEMENT) Jose Luis Urbina [id number] Jose Luis Carlitos 11/18/2023 1 [place] Jose Luis Urbina Jr [id number] Jose Luis Carlitos 11/18/2023 2 [employer] (MEDICARE SUPPLEMENT) Jose Luis Urbina [id number] Jose Luis Carlitos 04/16/2024 1 [place] Jose Luis Urbina Jr [id number] Jose Luis Carlitos 04/16/2024 2 [employer] (MEDICARE SUPPLEMENT) Jose Luis Urbina [id number] Jose Luis Urbina Notes Date Note Type Note Provider Name and Address Organization Details Recorded Time 11/11/2023 text/html Room #5 Patient is 68 year old male presenting in office for skin cancer surveillance. He would like to have his Right eyebrow, left cheek near nose and inside left ear evaluated today. Reason For Visit: 6 month TBSE/Hx of skin cancer Concerns: Right eyebrow, left cheek near nose, inside left ear Smoking: No Make up: NA Marco Peck MD [address] [place] [address], [phone], [facility] 11/14/2023 21:15:38 11/18/2023 text/html Room # 5 Patient is 68 year old male presenting in office for treatment of BCC on the left upper back superior edge of scar, lateral edge by ED&C. Patient confirms that the site to be treated is the correct site. Reason For Visit: ED&C Concerns: Left upper back Smoking: No Make up: No Is patient or trying to conceive? No Marco Peck MD [address] [place] [address], [phone], [facility] 11/23/2023 16:30:47 04/16/2024 text/html Room # 6 Reason For Visit: 6 month TBSE/SkinCa Patient presents today for a 6 month TBSE with a history of skin cancer. Concerns: Pt states he has been getting small scabby lesion around his neck that are concerning him. He denies bleeding and pain. He would like a refill of ketoconazole shampoo and fluocinonide 0.05% solution. He has no other concerns. Smoking: no Make up: n/a Currently , breast-feeding, or trying to conceive: n/a Marco Peck MD [address] [facility], [place], [address], [facility] 04/21/2024 14:59:44
[2024-08-12 10:35] LABS: Hemoglobin A1C 6.6 % (<5.7)
[2024-08-12 10:44] LABS: Alanine Aminotransferase 46 U/L (16-63); Albumin Level 3.7 g/dL (3.4-5.0); Alkaline Phosphatase 74 U/L (46-116); Anion Gap 4 mmol/L (4-12); Aspartate Amino Transferase 16 U/L (15-37); Blood Urea Nitrogen 8 mg/dL (7-18); Calcium 8.8 mg/dL (8.5-10.1); Carbon Dioxide 34 mmol/L (21-32); Chloride 105 mmol/L (98-108); Estimated Glomerular Filt Rate > 60; Glucose 138 mg/dL (70-99); Osmolality Calculated 296 mOsm/kg (285-295); Potassium 4.4 mmol/L (3.5-5.1); Sodium 143 mmol/L (136-145); Total Protein 6.9 g/dL (6.4-8.2)
== END 2024-08-12 09:51 | disposition home or self-care (01) ==
LOC: CHSLAB 09:52
PROVIDERS: PCP Internal Medicine; Visit Provider Internal Medicine
DX: J45.909 Unspecified asthma, uncomplicated (principal); R73.03 Prediabetes
CPT/HCPCS: 36415; 71046; 80053; 83036; 85025

== ENCOUNTER 2024-11-01 07:14 | Outpatient (CLI) | payer MEDICARE, OTHER, SELFPAY ==
[2024-11-01 07:40] LABS: Basophils Absolute Auto 0.02 K/mm3 (0.00-0.10); Basophils Percent Auto 0.4 % (0.0-1.0); Eosinophils Percent Auto 1.8 % (1.0-6.0); Hematocrit 46.9 % (37.0-46.0); Hemoglobin 15.9 g/dL (12.4-15.3); Immature Granulocyte Absolute 0.02 K/mm3 (0.00-0.00); Immature Granulocyte Percent A 0.4 % (0.0-0.0); Lymphocytes Absolute Auto 1.58 K/mm3 (1.10-4.50); Lymphocytes Percent Auto 28.3 % (18.0-42.0); Mean Corpuscular HGB Conc 33.9 g/dL (32-36); Mean Corpuscular Hemoglobin 34.2 pg (27.0-31.0); Mean Corpuscular Volume 100.9 fL (78.0-102.0); Mean Platelet Volume 9.9 fl (8.7-11.0); Monocytes Absolute Auto 0.58 K/mm3 (0.10-0.90); Monocytes Percent Auto 10.4 % (2.0-11.0); Neutrophils Absolute Auto 3.29 K/mm3 (1.70-7.20); Neutrophils Percent Auto 58.7 % (50.0-70.0); Platelet Count Result 156 K/mm3 (150-420); Red Blood Count 4.65 M/mm3 (4.70-6.10); Red Cell Distribution Width 12.3 % (11.6-14.4); White Blood Count 5.6 K/mm3 (4.8-10.8)
[2024-11-01 07:42] LABS: Add Urine Microscopic? NO; Appearance Urine Clear (Clear); Bilirubin Urine Negative (Negative); Blood Urine Negative (Negative); Color Urine Yellow (Yellow); Glucose Urine UA Negative (Negative); Ketones Urine Negative (Negative); Leukocyte Esterase Ur Negative (Negative); Nitrate Urine Negative (Negative); Protein Urine Negative (Negative); Specific Grav Ur <= 1.005 (1.010-1.020); Urobilinogen Urine 0.2 mg/dL (0.2-1.0); pH Urine 6.5 (5.0-8.0)
[2024-11-01 08:00] LABS: Alanine Aminotransferase 28 U/L (6-50); Albumin Level 4.5 g/dL (3.5-5.1); Alkaline Phosphatase 60 U/L (38-126); Anion Gap 4 mmol/L (4-12); Aspartate Amino Transferase 33 U/L (17-59); Bilirubin,Total 2.1 mg/dL (0.2-1.3); Blood Urea Nitrogen 7 mg/dL (9-20); Calcium 8.9 mg/dL (8.4-10.2); Carbon Dioxide 32 mmol/L (22-30); Chloride 104 mmol/L (98-107); Cholesterol 129 mg/dL (0-200); Estimated Glomerular Filt Rate > 60; Glucose 111 mg/dL (65-110); HDL Direct 42 mg/dL; LDL Cholesterol Calculated 66 mg/dL (<130); Osmolality Calculated 289 mOsm/kg (285-295); Potassium 4.7 mmol/L (3.4-5.0); Sodium 140 mmol/L (137-145); Triglycerides 104 mg/dL (<150)
[2024-11-01 08:05] LABS: Microalbumin Urine Random 8.4 mg/L (0-16.7)
[2024-11-01 08:07] LABS: Creatinine Urine 189.5 mg/dL; MALB Creatinine Ratio 4.4 mg/g (0-30)
[2024-11-01 08:33] LABS: Prostate Specific Antigen 0.4 ng/mL (< OR = 4.0)
[2024-11-01 08:40] LABS: Hemoglobin A1C 5.8 % (<5.7)
[2024-11-01 18:29] LABS: CRP < 0.5 mg/dL (<1.0)
== END 2024-11-01 07:15 | disposition home or self-care (01) ==
LOC: CHSLAB 07:17
PROVIDERS: PCP Internal Medicine; Visit Provider Internal Medicine
DX: E11.9 Type 2 diabetes mellitus without complications (principal); Z12.5 Encounter for screening for malignant neoplasm of prostate
CPT/HCPCS: 36415; 80053; 80061; 81003; 82043; 83036; 84153; 84443; 85025; 86140; G0103

== ENCOUNTER 2024-11-09 13:17 | Outpatient (CLI) | payer MEDICARE, OTHER, SELFPAY ==
--- OUTSIDE RECORDS SUMMARY | 2024-11-09 13:21 | XMS_ITS | Clinical Summary ---
Author Organization [facility] Address [address] [place] [address] Care Team Providers Care Data Processing Manager Name Role Phone Ricardo Castanon MD Primary Care Provider [phone] Allergies No known active allergies Medications atorvastatin [...] 95.3 kg (210 lb) 04/15/2024 10:06 AM EXTRACT MIXER Height 175.3 cm (5' 9) 04/15/2024 10:06 AM EXTRACT MIXER Body Mass Index 31.01 04/15/2024 10:06 AM EXTRACT MIXER Plan of Treatment Health Maintenance Due Date Last Done Comments Colorectal Cancer Screening Colonoscopy (10 Years) 1955 Hepatitis C 1973 Annual Medicare Wellness Visit 11/11/2019 COVID-19 Vaccine ( season) 2024 01/28/2024, 01/28/2023, 03/05/2022, Additional history exists DTaP, Tdap and Td Vaccines (3 - Td or Tdap) 02/19/2032 02/18/2022, 09/24/2011 Zoster Vaccines Completed 04/14/2018, 12/25/2017 Pneumococcal Vaccine: 50+ Years Completed 04/21/2023, 12/23/2021, 03/18/2017, Additional history [...] age to complete this topic Insurance MEDICARE [place] [employer] Care Teams Data Processing Manager Relationship Specialty Start Date End Date Ricardo Castanon MD [address] [place] [address] PCP - General INTERNAL MEDICINE 02/03/24
--- OUTSIDE RECORDS SUMMARY | 2024-11-09 13:21 | XMS_ITS | Data Portability ---
Author Organization [facility], [address] Neu[facility] ([place]) Address [address] 4th [place] [address] Care Team Providers Care Credit Controller Name Role Phone MERRY ALANIZ Primary Care [...] right suprabrow (1), left forehead (2), left cheondoism (2), left suprabrow (1), left cheek (5), [...] gets redder and scaly. The risks of custodial use of topical steroids including thinning of [...] of treatment #Seborrheic keratosis LOCATION: back, left cheondoism (pigmented), left preauricular -Multiple brown brown stuck [...] superficial BCC, s/p ED&C on 04/15/2023 -Right cheondoism, nodular BCC, s/p Mohs by Dr. Sequeira [...] superficial BCC, s/p ED&C on 04/15/2023 -Right cheondoism, nodular BCC, s/p Mohs by Dr. Sequeira [...] gets redder and scaly. The risks of middle or intermediate school principal use of topical steroids including thinning of [...] of treatment #Seborrheic keratosis LOCATION: back, left cheondoism (pigmented), left preauricular -Multiple brown brown stuck [...] pathology study - A. LOCATION: central chest superior - size, descripti on: 0.8 x 0.5cm shiny pink papule -DDx: BCC 2023 [facility]Y [facility], [address] [place] [address], [id number], 04/20/2024 16:20:32 surgical pathology study - A. LOCATION: left upper back superior edge of scar, lateral edge - size, descripti on: shiny pink papule, 0.7 x 0.8 cm -DDx: recurrent BCC B. LOCATION: left lateral mid back - size, descripti on: medium brown papule with very dark area at 3 o'clock, 0.4 x 0.4 cm Indicatio n: To remove entire lesion due to suspicion for malignanc y -DDx: Nevus with SK, less likely MIS 2023 daya [facility], [address] [place] [address], [address], 11/18/2023 23:30:46 Referral None recorded. Procedures None recorded. Surgeries None recorded. Imaging None recorded. Medication Orders compounde d medicatio n 2023 [facility], [address] [place] [address], [address], 04/16/2024 15:46:42 fluocinon lazara 0.05 % topical solution 2023 lionrva [id number], [address] [place], [address], 04/16/2024 16:57:12 ketoconaz ole 2 % shampoo 2023 024 [email or web address] [id number], [address] [place], [address], 04/16/2024 16:57:12 Patient TargetsNo targets recorded. Patient InstructionsNo instructions recorded. Reason for Referral None Reported. Results Created Date Observation Date Name Description Value Unit Range Abnormal Flag Note LastModifiedBy Organization Detail LastModifiedTime 11/11/19 24 11/12/2023 surgi anni patho logy study tissue exam biopsy [facility] [address],[place] [address] Ph. [phone] Jeremy Suarez MD, PhD, Medic al [facility], MARCO Chamberlain nt: CLAUDETTE BANSAL ID: [id number] Repor t Statu s: Final :0 1955 Case #: [id number] Age: 68 Y Gende r: M Date Colle cted: 11/10 MRN # : [id number] Date Recei nan: 11/10 Repor ricardo Date: [...] A 0.4 x 0.3 cm flat brown -rbown lesio n is prese nt on the [...] SK, less likel y MIS. Not Available [facility] [address] [place] [address], [id number], 11/12/2023 18:19:15 04/16/20 24 04/20/2024 surgi anni patho logy study tissue exam biopsy [facility] [address],[place] [address] Ph. [phone] Jeremy Suarez MD, PhD, Medic al [facility], MARCO Garcia MD Patie nt: NORBERTO ECLAUDETTE Sampl e ID: [id number] Repor t Statu s: Final :0 1955 Case #: [id number] Age: 68 Y Gende r: M Date Colle cted: 04/16 MRN # : [id number] Date Recei nan: 04/16 Repor ricardo Date: [...] Not Available [facility] [address] [place] [address], [place], [address], 04/20/2024 16:20:32 Result Notes None recorded. Problems Name Problem SNOMED Code Status Onset Date Resolution Date Notes Provider Name and Address Organization Details Recorded Time Basal cell carcinoma of chest wall 217416420 Active 2023 [facility] 4 12:55:42 Solar degeneration 47889952 Active 2023 Marco Peck MD [address] [place] [address], [phone] [place] [address] 4 14:59:21 Neoplasm of uncertain behavior of skin 57288779 Active [address] [facility] 4 13:22:00 Actinic keratosis 776167322 Active 2023 [facility] 4 12:27:54 Seborrheic dermatitis 46970940 Active [address] [facility] 4 10:53:55 Immunosuppress ion 20865764 Active 2023 Delores [facility] 4 10:54:16 Melanocytic nevus of trunk 189463145 Active [address] [facility] 4 10:54:33 Seborrheic keratosis 157348419 Active [address] [facility] 4 10:54:38 Milia 395895595 Active [address] [facility] 4 10:54:42 Basal cell carcinoma of upper back 662089309 Active [address] [facility] 4 09:37:44 Problem Notes None recorded. Procedures Surgical History Date Name Laterality Status Provider Name and Address Organization Details Recorded Time 11/11/19 24 Shave Biopsy, Multiple completed [facility] 11/11/2023 11:00:45 11/11/19 24 Actinic Keratosis completed [facility] 11/11/2023 10:54:56 Colonoscopy with biopsy completed Not [...] Address Organization Details Last Updated DateTime 11/11/2023 78167.8 g 71 /min 95 % 95 % Zaida Nova [facility] 11/11/2023 10:27:09 Date Recorded Body weight Heart rate Oxygen saturation Oxygen saturation in Arterial blood by Pulse oximetry Provider Name and Address Organization Details Last Updated DateTime 11/18/2023 26135.77 g 67 /min 96 % 96 % Joanie Taylor [facility] 11/18/2023 09:20:02 Date Recorded Body weight Oxygen saturation Oxygen saturation in Arterial blood by Pulse oximetry Heart rate Provider Name and Address Organization Details Last Updated DateTime 04/16/2024 61478.42 g 95 % 95 % 75 /min Camila Mohr [facility] 04/16/2024 11:50:35 Social History Question Answer Notes LastModified by Sunshine Details LastModified Time Do You Have An [...] Do You Have A Medical Power Of Sales Representative Public Utilities? No [email or web address] Information not available 11/04/2023 What Was The Date Of Your Most Recent Tobacco Screening? 11/11/2023 [email or web address] Information not available 11/04/2023 What Is Your Relationship Status? [email or web address] Information not available 11/04/2023 Sex: Unknown Functional Status Question Answer Note LastModified by Sunshine Details LastModified Time How many times per week do you consume alcohol? 3-4 times per week [email or web address] Information not available 11/04/2023 Do you use any illicit or recreational drugs? No [email or web address] Information not available 11/04/2023 What is your level of alcohol consumption? Occasional [email or web address] Information not available 11/04/2023 Are you currently employed? 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 Occasional [email or web address] Information not available 11/04/2023 Mental Status None recorded. Family History Relationship Description Onset Age of this Age Resolved Age Notes LastModified by Organization Details LastModified Time Mother Arthritis [email or web address] Not available 11/04/2023 12:10:14 Father Family history of malignant neoplasm [email or web address] Not available 2023 12:10:14 Medical History Condition Response High Blood Pressure N COPD N Depression N Anxiety Disorder N Arthritis Y Cancer N Stroke N Fibromyalgia N Kidney Disease N Attention-deficit Hyperactivity Disorder N Thyroid Problems N Anemia N Diabetes N Bleeding Disorder N Hyperlipidemia N Asthma N Seizures N Heart Disease N Osteoporosis N Past Encounters Encounter ID Performer Location Encounter Start Date Encounter Closed Date Diagnosis/Indication Diagnosis SNOMED-CT Code Diagnosis ICD10 Code Diagnosis Note [id number] [facility] [address] [facility] [place] [address] 11/11/2023 09:59:36 11/11/2023 11:22:01 Neoplasm of uncertain behavior of skin 49951137 D48.5 Actinic keratosis 335145 007 L57.0 Evaluation procedure 386 728459 Z08 History of malignant neoplasm of skin 391962990 Z85.828 Seborrheic dermatitis 50 790471 L21.9 Immunosuppression 764497 05 D84.9 Melanocyti c nevus of trunk 193624648 D22.5 Seborrheic keratosis 394 338138 L82.1 Milia 400047850 L72.0 [id number] MD [facility] [address] [facility] [place] [address] 11/18/2023 09:13:05 11/18/2023 10:57:12 Basal cell carcinoma of upper back 859127462 C44.519 left upper back superior edge of scar, lateral edge [id number] MD [facility] [address] [facility] [place] [address] 04/16/2024 11:09:59 04/16/2024 12:52:38 Actinic keratosis 362411337 L57.0 Seborrheic dermatitis 50 354063 L21.9 Evaluation procedure 386 339833 Z08 History of malignant neoplasm of skin 294798666 Z85.828 Immunosuppression 250952 05 D84.9 Melanocyti c nevus of trunk 887067274 D22.5 Seborrheic keratosis 394 124631 L82.1 Milia 222806878 L72.0 Basal cell carcinoma of chest wall 100709308 C44.519 Neoplasm o f uncertain behavior of skin 21221061 D48.5 Solar degeneration 88359 006 L57.8 Health Concerns Section Related Observation LastModified by Organization Neelima ls LastModified Time None Recorded Concern Status LastModified by Organization Details LastModified Time None Recorded Advance Directives Directive N: Payers Insurance Date Sequence Insurance Name Policy Number Policy Mayfield Covered Member ID Mayfield Member ID Guarantor Name 04/11/2024 1 [place] Jose Luis Urbina [id number] Jose Luisphilipp [place] 04/22/2024 2 [employer] [place] (MEDICARE SUPPLEMENT) Jose Luis Urbina [id number] Jose Luis Urbina Notes Date Note Type [...] up: NA Marco Peck MD [address] [place] [address], [phone], [facility] 11/14/2023 21:15:38 11/18/2023 text/html Room # 5 [...] conceive? No Marco Peck MD [address] [place] [address], [phone], [facility] 11/23/2023 16:30:47 04/16/2024 text/html Room # 6 [...] conceive: n/a Marco Peck MD [address] [place] [address], [phone], [facility] 04/21/2024 14:59:44
--- NOTE | 2024-11-09 13:24 | ECG_ITS ---
Test Date: 2024-11-09 13:30:42 Measurements Intervals Chapman Rate: 62 P: -35 TN: 145 QRS: -17 QRSD: 98 T: 50 QT: 392 QTc: 400 Interpretive Statements SINUS RHYTHM NORMAL ELECTROCARDIOGRAM No previous ECG available for comparison Electronically Signed On 11-10-2024 07:58:56 CDT by Nir Mcarthur M.D.
== END 2024-11-09 13:18 | disposition home or self-care (01) ==
PROVIDERS: PCP Internal Medicine; Visit Provider Internal Medicine
DX: R06.00 Dyspnea, unspecified (principal); R42 Dizziness and giddiness
CPT/HCPCS: 93005

== ENCOUNTER 2024-11-11 07:47 | Outpatient (CLI) | payer MEDICARE, OTHER, SELFPAY ==
--- NOTE | ~2024-11-11 | US_ITS ---
EXAMINATION: US carotid duplex BI DATE: 11/11/2024 08:23 INDICATION: Dyspnea and dizziness TECHNIQUE: Grayscale, color Doppler, and pulsed Doppler images of the cervical carotid arteries were obtained. The degree of vessel stenosis is placed in one of the following categories: normal, <50%, 5 0-69%, >=70% but less than near-occlusion, near-occlusion, or total occlusion. Note that percent sten osis relative to normal distal artery lumen diameter is indirectly measured from velocity measurement s as described by Adrian, et al. Radiology 2003; 229:340-346. COMPARISON: None. FINDINGS: RIGHT: The right common carotid artery (CCA) peak systolic velocity (PSV) is 78 cm/s. The right internal car otid artery (ICA) PSV is 190 cm/s. The right ICA end-diastolic velocity (EDV) is 38 cm/s. The right I CA/CCA PSV ratio is 2.4. Grayscale and color Doppler images yield an estimate of 50-69% diameter redu ction from plaque in the ICA. The external carotid artery (ECA) PSV is 120 cm/s. There is antegrade f low in the right vertebral artery. LEFT: The left CCA PSV is 108 cm/s. The left ICA PSV is 110 cm/s. The left ICA EDV is 25 cm/s. The left ICA /CCA PSV ratio is 1.0. Grayscale and color Doppler images yield an estimate of <50% diameter reductio n from plaque in the ICA. The ECA PSV is 77 cm/s. There is antegrade flow in the left vertebral arter y. IMPRESSION: 1. 50-69% stenosis in the right internal carotid artery. 2. <50% stenosis in the left internal carotid artery. Reviewed, dictated and finalized at location A.
--- OUTSIDE RECORDS SUMMARY | 2024-11-11 07:52 | XMS_ITS | Data Portability ---
Author Organization [facility], [address] 4[address] Neurology ([place]) Address [address] 4th [place] [address] Care Team Providers Care Environmental Sampling Technician Name Role Phone MERRY ALANIZ Primary Care [...] right suprabrow (1), left forehead (2), left religious (2), left suprabrow (1), left cheek (5), [...] gets redder and scaly. The risks of senior care use of topical steroids including thinning of [...] of treatment #Seborrheic keratosis LOCATION: back, left religious (pigmented), left preauricular -Multiple brown brown stuck [...] superficial BCC, s/p ED&C on 04/15/2023 -Right religious, nodular BCC, s/p Mohs by Dr. Sequeira [...] superficial BCC, s/p ED&C on 04/15/2023 -Right religious, nodular BCC, s/p Mohs by Dr. Sequeira [...] gets redder and scaly. The risks of senior care use of topical steroids including thinning of [...] of treatment #Seborrheic keratosis LOCATION: back, left religious (pigmented), left preauricular -Multiple brown brown stuck [...] -DDx: BCC 2023 ANTHONY [facility], [address] [place] [address], [address], 04/20/2024 16:20:32 surgical pathology study - A. [...] with SK, less likely MIS 2023 daya [facility], [address] [place] [address], [address], 11/18/2023 23:30:46 Referral None recorded. Procedures None recorded. Surgeries None recorded. Imaging None recorded. Medication Orders compounde d medicatio n 2023 [facility], [address] [place] [address], [address], 04/16/2024 15:46:42 fluocinon lazara 0.05 % topical solution 2023 lionrva [id number], [address] [place], [address], 04/16/2024 16:57:12 ketoconaz ole 2 % shampoo 2023 024 [email or web address] [id number], [address] [place], [address], 04/16/2024 16:57:12 Patient TargetsNo targets recorded. Patient InstructionsNo instructions recorded. Reason for Referral None Reported. Results Created Date Observation Date Name Description Value Unit Range Abnormal Flag Note LastModifiedBy Organization Detail LastModifiedTime 11/11/19 24 11/12/2023 surgi anni patho logy study tissue exam biopsy [facility] [address],[place] [address] Ph. Jeremy Suarez MD, PhD, Medic al [facility], MARCO Chamberlain nt: CLAUDETTE BANSAL ID: [id number] Repor t Statu s: Final :0 1955 Case #: [id number] Age: 68 Y Gende r: M Date Colle cted: 11/10 MRN # : [id number] Date Recei nan: 11/10 Repor ricardo Date: [...] SK, less likel y MIS. Not Available [facility] [address] [place] [address], [address], 11/12/2023 18:19:15 04/16/20 24 04/20/2024 surgi anni patho logy study tissue exam biopsy [facility] [address],[place] [address] Ph. [phone] Jeremy Suarez MD, PhD, Medic al [facility], MARCO Garcia MD Patie nt: NORBERTO ECLAUDETTE Sampl e ID: [id number] Repor t Statu s: Final :0 1955 Case #: [id number] Age: 68 Y Gende r: M Date Colle cted: 04/16 MRN # : [id number] Date Recei nan: 04/16 Repor ricardo Date: [...] [facility] [address] [place] [address], [place], [address], 04/20/2024 16:20:32 Result Notes None recorded. Problems Name Problem SNOMED Code Status Onset Date Resolution Date Notes Provider Name and Address Organization Details Recorded Time Basal cell carcinoma of chest wall 742340792 Active 2023 [facility] 4 12:55:42 Solar degeneration 97725891 Active 2023 Marco Peck MD [address] [place] [address], [phone] [place] [address] 4 14:59:21 Neoplasm of uncertain behavior of skin 61968033 Active 2023 Gris Hewitt [facility] 4 13:22:00 Actinic keratosis 643361450 Active 2023 [facility] 4 12:27:54 Seborrheic dermatitis 82835262 Active 2023 Delores Guard [facility] 4 10:53:55 Immunosuppress ion 26744733 Active 2023 Delores [facility] 4 10:54:16 Melanocytic nevus of trunk 104636952 Active 2023 Delores Guard [facility] 4 10:54:33 Seborrheic keratosis 739728151 Active 2023 Delores Guard [facility] 4 10:54:38 Milia 642698807 Active 2023 [facility] 4 10:54:42 Basal cell carcinoma of upper back 093617038 Active 2023 Delores Guard [facility] 4 09:37:44 Problem Notes None recorded. Procedures Surgical History Date Name Laterality Status Provider Name and Address Organization Details Recorded Time 11/11/19 24 Shave Biopsy, Multiple completed [facility] 11/11/2023 11:00:45 11/11/19 24 Actinic Keratosis completed [facility] 11/11/2023 10:54:56 Colonoscopy with biopsy completed [...] Address Organization Details Last Updated DateTime 11/11/2023 77136.8 g 71 /min 95 % 95 % Zaida Nova [facility] 11/11/2023 10:27:09 Date Recorded Body weight Heart rate Oxygen saturation Oxygen saturation in Arterial blood by Pulse oximetry Provider Name and Address Organization Details Last Updated DateTime 11/18/2023 71937.77 g 67 /min 96 % 96 % Joanie Taylor [facility] 11/18/2023 09:20:02 Date Recorded Body weight Oxygen saturation Oxygen saturation in Arterial blood by Pulse oximetry Heart rate Provider Name and Address Organization Details Last Updated DateTime 04/16/2024 88813.42 g 95 % 95 % 75 /min Camila Mohr [facility] 04/16/2024 11:50:35 Social History Question Answer Notes LastModified by [employer] Details LastModified Time Do You Have An [...] Do You Have A Medical Power Of Basket Patcher? No [email or web address] Information not available 11/04/2023 What Was The Date Of Your Most Recent Tobacco Screening? 11/11/2023 [email or web address] Information not available 11/04/2023 What Is Your Relationship Status? [email or web address] Information not available 11/04/2023 Sex: Unknown Functional Status Question Answer Note LastModified by [employer] Details LastModified Time How many times per [...] SNOMED-CT Code Diagnosis ICD10 Code Diagnosis Note [id number] MD [facility] [address] [facility] [place] [address] 11/11/2023 09:59:36 11/11/2023 11:22:01 Neoplasm of uncertain behavior of skin 24619960 D48.5 Actinic keratosis 867751 007 L57.0 Evaluation procedure 386 793346 Z08 History of malignant neoplasm of skin 989370665 Z85.828 Seborrheic dermatitis 50 844965 L21.9 Immunosuppression 371527 05 D84.9 Melanocyti c nevus of trunk 013010833 D22.5 Seborrheic keratosis 394 823539 L82.1 Milia 599364520 L72.0 [id number] MD [facility] [address] [facility] [place] [address] 11/18/2023 09:13:05 11/18/2023 10:57:12 Basal cell carcinoma of upper back 872389491 C44.519 left upper back superior edge of scar, lateral edge [id number] MD [facility] [address] [facility] [place] [address] 04/16/2024 11:09:59 04/16/2024 12:52:38 Actinic keratosis 372661196 L57.0 Seborrheic dermatitis 50 572839 L21.9 Evaluation procedure 386 624615 Z08 History of malignant neoplasm of skin 335543541 Z85.828 Immunosuppression 058148 05 D84.9 Melanocyti c nevus of trunk 795349462 D22.5 Seborrheic keratosis 394 662006 L82.1 Milia 470939346 L72.0 Basal cell carcinoma of chest wall 760233550 C44.519 Neoplasm o f uncertain behavior of skin 58742304 D48.5 Solar degeneration 91326 006 L57.8 Health Concerns Section Related Observation LastModified by Organization Neelima ls LastModified Time None Recorded Concern Status LastModified by Organization Details LastModified Time None Recorded Advance Directives Directive N: Payers Insurance Date Sequence Insurance Name Policy Number Policy Mayfield Covered Member ID Mayfield Member ID Guarantor Name 04/11/2024 1 [place] Jose Luis Urbina [id number] Jose Luisphilipp [place] 04/22/2024 2 [employer] [place] (MEDICARE SUPPLEMENT) Jose Luis Urbina [id number] Jose Luis Urbina Notes Date Note Type [...] up: NA Marco Peck MD [address] [place] [address], [phone], [facility] 11/14/2023 21:15:38 11/18/2023 text/html Room # 5 [...] conceive? No Marco Peck MD [address] [place] [address], [phone], [facility] 11/23/2023 16:30:47 04/16/2024 text/html Room # 6 [...] conceive: n/a Marco Peck MD [address] [place] [address], [phone], [facility] 04/21/2024 14:59:44
--- OUTSIDE RECORDS SUMMARY | 2024-11-11 07:52 | XMS_ITS | Clinical Summary ---
Author Organization [facility] Address [address] [place] [address] Care Team Providers Care Freelance Operator Name Role Phone Ricardo Castanon MD Primary Care Provider [phone] Allergies No known active allergies Medications atorvastatin [...] 95.3 kg (210 lb) 04/15/2024 10:06 AM TOOL DRESSER Height 175.3 cm (5' 9) 04/15/2024 10:06 AM TOOL DRESSER Body Mass Index 31.01 04/15/2024 10:06 AM TOOL DRESSER Plan of Treatment Health Maintenance Due Date [...] age to complete this topic Insurance MEDICARE [employer] Care Teams Freelance Operator Relationship Specialty Start Date End Date Ricardo Castanon MD [address] [place] [address] PCP - General INTERNAL MEDICINE 02/03/24
== END 2024-11-11 07:48 | disposition home or self-care (01) ==
LOC: CHSIMG 07:49
PROVIDERS: PCP Internal Medicine; Visit Provider Internal Medicine
DX: R06.00 Dyspnea, unspecified (principal); R42 Dizziness and giddiness; I65.23 Occlusion and stenosis of bilateral carotid arteries
CPT/HCPCS: 93880

== ENCOUNTER 2024-12-22 13:19 | Outpatient (CLI) | payer MEDICARE, OTHER, SELFPAY ==
--- OUTSIDE RECORDS SUMMARY | 2024-12-22 13:37 | XMS_ITS | Clinical Summary ---
Author Organization [facility] Address [address] [place] [address] Care Team Providers Care Jamb Cutter Name Role Phone Ricardo Castanon MD Primary Care Provider [phone] Allergies No known active allergies Medications atorvastatin [...] 95.3 kg (210 lb) 04/15/2024 10:06 AM LOCAL ANNOUNCER Height 175.3 cm (5' 9) 04/15/2024 10:06 AM LOCAL ANNOUNCER Body Mass Index 31.01 04/15/2024 10:06 AM LOCAL ANNOUNCER Plan of Treatment Health Maintenance Due Date [...] age to complete this topic Insurance MEDICARE [employer] Care Teams Jamb Cutter Relationship Specialty Start Date End Date Ricardo Castanon MD [address] [place] [address] PCP - General INTERNAL MEDICINE 02/03/24
== END 2024-12-22 13:20 | disposition home or self-care (01) ==
LOC: CHSCARD 13:20
PROVIDERS: PCP Internal Medicine; Visit Provider Internal Medicine
DX: R06.00 Dyspnea, unspecified (principal); R42 Dizziness and giddiness
CPT/HCPCS: 94060; 94726; 94729

== ENCOUNTER 2025-02-09 07:23 | Outpatient (CLI) | payer MEDICARE, OTHER, SELFPAY ==
--- NOTE | 2025-02-09 07:31 | ECHO_ITS ---
Patient Info Name: Jose Luis Urbina Age: 69 years : 1955 Gender: Male Ht: 68 in Wt: 192 lbs BSA: 2.07 m2 HR: 62 bpm BP: 127 / 85 mmHg Technical Quality: Good Exam Date: 02/09/2025 8:12 AM Patient Status: O Admit Date: 02/09/2025 Exam Type: CA echo doppler color flow Complete two-dimensional, color flow and Doppler transthoracic echocardiogram is performed. Estimation Manager: Aydee Faith Attending Provider: Nayan Salguero DO Summary 1. Complete two-dimensional, color flow and Doppler transthoracic echocardiogram is performed. 2. Left ventricular chamber dimension is normal. 3. Left ventricular systolic function is normal, estimated at 60-65. 4. The left ventricular diastolic function is grade I diastolic dysfunction. 5. E/e' 7 is not elevated. 6. There is mild aortic valve sclerosis. Left Ventricle E/e' 7 is not elevated. Left ventricular chamber dimension is normal. Left ventricular systolic function is normal, estimated at 60-65. The left ventricular diastolic function is grade I diastolic dysfunction. Right Ventricle Right ventricular chamber dimension is normal. Right ventricular systolic function is normal. Left Atria Left atrial chamber dimension is normal. Right Atria Right atrial chamber dimension is normal. Aortic Valve The aortic valve is trileaflet. There is mild aortic valve sclerosis. There is no aortic valve stenosis. There is no aortic valve regurgitation. Pulmonic Valve There is no pulmonic regurgitation. Mitral Valve There is no mitral valve stenosis. There is no mitral valve regurgitation. Tricuspid Valve There is no tricuspid valve regurgitation. Pericardium/Pleural There is no pericardial effusion. Inferior Vena Cava Normal inferior vena cava with >50% collapse upon inspiration consistent with normal right atrial pressure, 5 mmHg. Aorta The aortic root size at the sinus of Valsalva is normal. Left Ventricular Outflow Tract Name Value Normal LVOT 2D LVOT Diameter 2.0 cm LVOT Doppler LVOT Peak Velocity 101 cm/s LVOT Peak Gradient 4 mmHg LVOT Mean Gradient 2 mmHg LVOT VTI 23 cm LVOT Stroke Volume 70 ml LVOT CO 4.3 l/min LVOT CI 2.1 l/min/m2 Pulmonic Valve Name Value Normal RVOT Doppler RVOT Peak Velocity 47 cm/s RVOT Peak Gradient 1 mmHg PV Doppler PV Peak Velocity 87 cm/s PV Peak Gradient 3 mmHg Mitral Valve Name Value Normal MV Diastolic Function MV E Peak Velocity 65 cm/s MV A Peak Velocity 64 cm/s MV E/A 1.0 MV Decel Time (PW) 300 ms MV Annular TDI MV E/e' (Septal) 10.7 MV E/e' (Lateral) 5.8 MV E/e' (Average) 8.3 Tricuspid Valve Name Value Normal Estimated PAP/RSVP RA Pressure 5 mmHg <=5 Aortic Valve Name Value Normal AV Doppler AV Peak Velocity 117 cm/s AV Peak Gradient 5 mmHg AV Area (Cont Eq Carlitos) 2.6 cm2 AV DI (Carlitos) 0.86 AV Regurgitation 2D LVOT Area 3.1 cm2 Ventricles Name Value Normal LV Dimensions 2D/MM IVS Diastolic Thickness (2D) 1.0 cm 0.6-1.0 LVID Diastole (2D) 4.7 cm 4.2-5.8 LVIW Diastolic Thickness (2D) 1.2 cm 0.6-1.0 LVID Systole (2D) 3.3 cm 2.5-4.0 LVOT Diameter 2.0 cm LV Mass (2D Cubed) 181.54 g 88.00-224.00 LV Mass Index (2D Cubed) 88 g/m2 49-115 Relative Wall Thickness (2D) 0.49 <=0.42 LV Fractional Shortening/Ejection Fraction 2D/MM LV Fractional Shortening (2D) 30 % 25-43 LV EF (2D Teichvalentinaz) 57 % LV Diastolic Volume (4C MOD) 97 ml LV EF (4C MOD) 61 % LV Diastolic Volume (2C MOD) 117 ml LV EF (2C MOD) 61 % LV Diastolic Volume (BP MOD) 108 ml 62-150 LV Diastolic Volume Index (BP MOD) 52 ml/m2 34-74 LV Systolic Volume (BP MOD) 42 ml 21-61 LV Systolic Volume Index (BP MOD) 20 ml/m2 11-31 LV EF (BP MOD) 61 % 52-72 LV Diastolic Length (4C) 8.1 cm LV Systolic Length (4C) 6.8 cm LV Stroke Volume (4C MOD) 58 ml Atria Name Value Normal LA Dimensions LA Volume (4C A-L) 25 ml LA Volume (BP A-L) 29 ml RA Dimensions RA Area (4C) 10.8 cm2 <=18.0 Report Signatures
--- NOTE | 2025-02-09 08:23 | EST_ITS ---
Patient Info Name: Jose Luis Urbina Age: 69 years : 1955 Gender: Male Ht: 68 in Wt: 192 lbs BSA: 2.07 m2 Exam Date: 02/09/2025 8:23 AM Patient Status: unknown Admit Date: 02/09/2025 Exam Type: CA stress test treadmill A treadmill exercise stress test was performed. Staff Attending Provider: Nayan Salguero DO Exercise Technologist: Mary Harden Exercise Physician: Nayan Salguero DO Summary 1. 1. Negative Kevin exercise stress test for ischemic ST changes by ECG criteria. 2. 2. Good functional capacity, achieving 8 METs of workload. 3. 3. Appropriate HR response to exercise. 4. 4. Appropriate HR recovery at 1 minute post exercise. 5. 5. No imaging with stress testing. 6. 6. Patient informed of the above results. Protocol: Kevin Rest HR: 57 bpm Peak HR: 146 bpm Rest Sys BP: 127 mmHg Peak Sys BP: 160 mmHg Max Pred HR: 150 bpm % Max Pred HR: 97 % Target HR: 128 bpm Max RPP: 23,360 bpm*mmHg Termination Reason: Reached target heart rate or workload Cardiac Symptoms: Shortness of breath Total Time: 7 min : 0 sec Rest Carrasco BP: 72 mmHg Peak Carrasco BP: 49 mmHg Resting ECG Sinus bradycardia, IRBBB. Stress ECG No ST changes. Arrhythmias Occasional PACs. Report Signatures
== END 2025-02-09 07:24 | disposition home or self-care (01) ==
LOC: ANHCARD 07:25
PROVIDERS: PCP Internal Medicine; Visit Provider Internal Medicine Cardiovascular Disease
DX: R93.1 Abnormal findings on diagnostic imaging of heart and coronary circulation (principal); R07.9 Chest pain, unspecified; R06.09 Other forms of dyspnea
CPT/HCPCS: 93017; 93306